=== PATIENT | male | born 1980 | race Caucasian/White ===

== ENCOUNTER 2019-03-25 19:12 | Observation (INO) ==
[2019-03-25 19:38] LABS: Basophils # (auto) 0.02 K/uL (0-0.2); Basophils % (auto) 0.2 %; Eosinophils % (auto) 2.4 %; Hematocrit (blood only) 49.2 % (42-52); Hemoglobin 16.8 g/dL (14.0-18.0); Immature Granulocytes # (auto) 0.02 K/uL (0.00-0.02); Immature Granulocytes % (auto) 0.2 %; Lymphocytes % (auto) 31.2 %; Mean Corpuscular Hemoglobin 31.5 pg (25-34); Mean Corpuscular Hgb Conc 34.1 g/dL (32-36); Mean Corpuscular Volume 92.1 fL (80-100); Mean Platelet Volume 10.6 fL (7.4-10.4); Monocytes # (auto) 0.66 K/uL (0.11-0.59); Monocytes % (auto) 7.9 %; Neutrophils # (auto) 4.83 K/uL (1.4-6.5); Neutrophils % (auto) 58.1 %; Platelet Count 272 K/uL (130-400); RDW Coefficient of Variation 13.2 % (11.5-14.5); RDW Standard Deviation 44.1 fL (36.4-46.3); Red Blood Count 5.34 M/uL (4.7-6.1); White Blood Count 8.33 K/uL (4.8-10.8)
--- NOTE | 2019-03-25 19:39 | XRay Report ---
XR chest 1V portable CLINICAL HISTORY: Hypertension COMPARISON STUDY: No previous studies for comparison. FINDINGS: The bones soft tissues and hemidiaphragms are normal. The cardiomediastinal silhouette is n ormal. The lungs are clear. The pulmonary vasculature is normal. IMPRESSION: Negative chest. ACT 112: Negative or not required by law. The above report was generated using voice recognition software. It may contain grammatical, syntax or spelling errors. Electronically signed by: Nakul Oconnell M.D. 03/25/2019 7:38 PM
[2019-03-25 20:03] LABS: Alanine Aminotransferase 119 U/L (12-78); Albumin Level 3.9 gm/dl (3.4-5.0); Blood Urea Nitrogen 14 mg/dl (7-18); Calcium 9.3 mg/dl (8.5-10.1); Carbon Dioxide 29 mmol/L (21-32); Chloride 108 mmol/L (98-107); Creatinine Clr Calc Pharmacy 94.4 ml/min; Est GFR (African American) 79.3; Est GFR (Non-African American) 68.4; Glucose 133 mg/dl (70-99); Sodium 140 mmol/L (136-145)
[2019-03-25 20:05] LABS: Albumin Globulin Ratio 0.9 (0.9-2); Alkaline Phosphatase 105 U/L (45-117); Bilirubin,Total 0.3 mg/dl (0.2-1); D Dimer < 190 ug/L FEU (0-500); Globulin 4.3 gm/dl (2.5-4.0); Total Protein 8.2 gm/dl (6.4-8.2); Troponin I < 0.015 ng/ml (0-0.045)
[2019-03-25 20:09] LABS: Potassium 3.9 mmol/L (3.5-5.1)
[2019-03-25 20:11] LABS: Aspartate Aminotransferase 51 U/L (15-37)
[2019-03-25 20:13] LABS: Appearance Urine Clear (Clear); Bacteria Urine Automated Negative (Negative); Bilirubin Urine Negative (Negative); Blood Urine Trace (Negative); Cast Urine Automated 0 /lpf (0-5); Color Urine Yellow; Epithelial Cell Urine Auto 0-5 /lpf (0-5); Glucose Urine UA Trace (Negative); Ketones Urine Negative (Negative); Leukocyte Esterase Urine Negative (Negative); Nitrite Urine Negative (Negative); Protein Urine Negative (Negative); RBC Urine Automated 0-4 /hpf (0-4); Specific Gravity Urine 1.021 (1.000-1.030); Urobilinogen Urine Negative (Negative)
--- NOTE | 2019-03-25 22:42 | History & Physical Report ---
Date of Service March 25, 2019 Assessment & Plan (1) Shortness of breath: 39 yo M with PMH HLD presents with concerns of chest palpitations and associated SOB found to have T wave inversions on EKG and neg initial trop admitted for r/o. Palpitations/SOB -admit to telemetry -EKG on arrival shows NSR with inferolateral T wave inversions. Repeat EKG daily ordered -intial trop neg. Will cont trend q6h -nitroglycerin prn for chest pain -Aspirin initiated, cont 5 mg Simvastatin -ECHO ordered -appreciate Cardiology consult -AM Fasting Lipid Panel, A1C -likely component of anxiety HLD -cont 5 mg simvastatin FEN/GI: NPO after midnight for AM labs and for any possible cardiac intervention DVT Prophylaxis: Lovenox 40mg qAM Full Code Dispo: PCU Tele. Obs. History of Present Illness Primary Care Provider: NO PCP 39 yo M with PMH HLD presents to [facility] with concerns of palpitations and associated SOB. Pt describes this as not chest pain or pressure, rather a 'weird feeling in the sternum that feels like a heartbeat.' No previous such occurrence like this before. This only lasts for 1-2 sec, and as mentioned above is associated with brief SOB that quickly resolves. Nonradiating. No alleviating or exacerbating factors. Pt states it occurs randomly, no pattern noticed (with exertion, at rest, etc), about 5-10x/day. First noticed this on his birthday, this past Monday, and pt attributes most of this to feelings of anxiety of getting older. Pt notes that one of his favourite actors, who is roughly same age and body habitus as himself, recently had heart issues, which worried pt that this may also happen to him. Concerns of not being able to be there for his kids, ages 2 and 8, if something were to happen to him as he gets older. Of note, pt was at [facility] in AM of admission and got BP reading there from automatic cuff, which he says was elevated, but unsure of exact reading, perhaps in 200s, which further gave him anxiety. Otherwise denies any PND, HERNANDEZ, syncope or near syncope, diaphoresis, numbness/weakness, F/N/V/D, cough, swelling, claudication, HERR, abd pain, urinary sxs. Pt with no other acute concerns or complaints. ER Course: PO ASA 324 mg CXR- negative chest EKG- NSR. Inferolateral T wave. No previous EKG's for comparison Labs: Largely unremarkable other than AST 51, ALT 119. Initial Trop negative. Family hx: Grandmother with 'open heart surgery three times.' Otherwise unremarkable Social: Denies Tobacco/illicit drug use. Daily alcohol use, 'sometimes 2 beers, sometimes 6' Surgical hx: Inguinal hernia repair, nasal polyp removal. Otherwise unremarkable. Allergies Allergy/AdvReac Type Severity Reaction Status Date / Time No Known Allergies Allergy Unverified 03/25/19 21:43 Home Medications Home Medications Medication Instructions Recorded Confirmed Type simvastatin 5 mg PO DAILY 03/25/19 03/25/19 History Past Med/Surg History Medical History No significant medical problems Social History Feels Safe at Home: Yes Smoking Status: Never smoker Review of Systems Review of Systems: All systems reviewed & are unremarkable except as noted in HPI & below Physical Exam Constitutional: WD/WN, vitals as above Eyes: PERRL, conjunctivae normal, anicteric sclerae ENMT: external ear and nose normal, oropharynx normal Respiratory: normal respiratory effort, lungs clear to auscultation Cardiovascular: RRR, no murmur, no edema Chest (Breasts): Additional Comments: chest sensation not reproducible on palpation Gastrointestinal (Abdomen): normal bowel sounds, soft, nontender, no hepatosplenomegaly Skin: no rashes, warm and dry Psychiatric: Orientation: alert and oriented x 3 Affect: + anxious affect Results & Data Vital Signs (Past 12 Hours) Vital Signs Temp Pulse Pulse Resp BP BP Pulse Ox 03/25/19 21:08 96 03/25/19 21:06 76 16 133/71 97 03/25/19 19:17 36.7 C 89 20 165/97 H 96 Laboratory Results Laboratory Results - last 24 hr 03/25/19 03/25/19 03/25/19 19:29 19:29 19:29 WBC 8.33 RBC 5.34 Hgb 16.8 Hct 49.2 MCV 92.1 MCH 31.5 MCHC 34.1 RDW Std Deviation 44.1 RDW Coeff of Saumya 13.2 Plt Count 272 MPV 10.6 H Immature Gran % (Auto) 0.2 Neut % (Auto) 58.1 Lymph % (Auto) 31.2 [place] % (Auto) 7.9 Eos % (Auto) 2.4 Baso % (Auto) 0.2 Immature Gran # (Auto) 0.02 Neut # (Auto) 4.83 Lymph # (Auto) 2.60 [place] # (Auto) 0.66 H Eos # (Auto) 0.20 Baso # (Auto) 0.02 D-Dimer < 190 Sodium 140 Potassium 3.9 Chloride 108 H Carbon Dioxide 29 Anion Gap 3.0 BUN 14 Creatinine 1.29 Est Cr Clr Drug Dosing 94.4 Est GFR ( Amer) 79.3 Est GFR (Non-Af Amer) 68.4 BUN/Creatinine Ratio 11.0 Glucose 133 H Calcium 9.3 Total Bilirubin 0.3 AST 51 H ALT 119 H Alkaline Phosphatase 105 Troponin I < 0.015 Total Protein 8.2 Albumin 3.9 Globulin 4.3 H Albumin/Globulin Ratio 0.9 Urine Color Urine Appearance Urine pH Ur Specific [place] Urine Protein Urine Glucose (UA) Urine Ketones Urine Blood Urine Nitrite Urine Bilirubin Urine Urobilinogen Ur Leukocyte Esterase Urine WBC (Auto) Urine RBC (Auto) U Hyaline Cast (Auto) U Epithel Cells (Auto) Urine Bacteria (Auto) 03/25/19 19:30 WBC RBC Hgb Hct MCV MCH MCHC RDW Std Deviation RDW Coeff of Saumya Plt Count MPV Immature Gran % (Auto) Neut % (Auto) Lymph % (Auto) [place] % (Auto) Eos % (Auto) Baso % (Auto) Immature Gran # (Auto) Neut # (Auto) Lymph # (Auto) [place] # (Auto) Eos # (Auto) Baso # (Auto) D-Dimer Sodium Potassium Chloride Carbon Dioxide Anion Gap BUN Creatinine Est Cr Clr Drug Dosing Est GFR ( Amer) Est GFR (Non-Af Amer) BUN/Creatinine Ratio Glucose Calcium Total Bilirubin AST ALT Alkaline Phosphatase Troponin I Total Protein Albumin Globulin Albumin/Globulin Ratio Urine Color Yellow Urine Appearance Clear Urine pH 7.0 Ur Specific [place] 1.021 Urine Protein Negative Urine Glucose (UA) Trace H Urine Ketones Negative Urine Blood Trace H Urine Nitrite Negative Urine Bilirubin Negative Urine Urobilinogen Negative Ur Leukocyte Esterase Negative Urine WBC (Auto) 1-5 Urine RBC (Auto) 0-4 U Hyaline Cast (Auto) 0 U Epithel Cells (Auto) 0-5 Urine Bacteria (Auto) Negative Medications Administered Current Inpatient Medications Aspirin (Aspirin) 324 mg PO NOW STA Stop: 03/25/19 23:00 Code Status & VTE Plan Code Status FULL Supervising Physician Co-Signing Physician Notes Patient was seen and examined by me personally. I reviewed the chart, the orders and discussed the case in detail with Dr. Bill Aden DO . I read this H&P and agree with its contents to entirety. Resident Activity Tracking Resident Involvement: Resident Care Provided Care Provided: Adult Hospital Medicine
--- NOTE | 2019-03-25 22:58 | Emergency Department Note ---
Entered by Viola Rdz acting as a scribe for Timur Bowie MD ED Provider Note CHIEF COMPLAINT: Shortness of breath HISTORY OF PRESENT ILLNESS: The patient is a 39 year old male who presents to the Emergency Room with comp laints of shortness of breath which started 4 days ago. The patient reports that he has been experiencing right sided chest pain which radiates to his right shoulder. He notes that he has been short of breath. The patient notes that he went to a clinic today where they referred him to the ED because of high blood pressure. The patient states that the pain is intermittent. He notes that he has been anxious about getting older recently. He mentions that he has been eating and drinking normally. Pt denies LOC, headache, fevers, chills, diaphoresis, visual changes, neck pain, nausea, vomiting, abdominal pain, back pain, melena, hematochezia, urinary symptoms, numbness, weakness, lymphadenopathy, rash, or other complaints. REVIEW OF SYSTEMS: See HPI for pertinent positives and negatives. A total of ten systems were reviewed and were otherwise negative. PMHx/PSHx: No significant past medical history. SOCIAL HISTORY: Patient admits to alcohol use. PHYSICAL EXAM: GENERAL: Awake, alert, well-appearing, in no distress HENT: Normocephalic, atraumatic. Oropharynx unremarkable. EYES: PERRL. Normal conjunctiva. Sclera non-icteric. NECK: Inspection normal. Non-tender. Supple. No nuchal rigidity. FROM. No masses. RESPIRATORY: Clear to auscultation. No wheezes. No rales. Normal respiratory effort. CARDIAC: Normal rate. Normal rhythm. No murmurs. No rubs. Extremities warm and w ell perfused. Pulses equal. No JVD. GI: Soft, non-distended. No tenderness to palpation. No rebound or guarding. No masses. RECTAL: Deferred. MUSCULOSKELETAL: Atraumatic. Chest examination reveals no tenderness. The back is symmetrical on inspection without obvious abnormality. There is no CVA tenderness to palpation. No joint edema. LOWER EXTREMITIES: Calves are equal size bilaterally and non-tender. No edema. No discoloration. NEURO: Normal sensorium. No sensory or motor deficits noted. SKIN: No rash or jaundice noted. EMERGENCY DEPARTMENT COURSE: 193: Past medical records reviewed. The patient was evaluated in room C4, and a complete history and physical examination were performed. 2114: I reevaluated the patient and discussed his results, he is willing to stay. 2119: I discussed the patient's case with Dr. Mora- [facility] Hospitalist, he will accept the patient for further evaluation. MEDICAL DECISION MAKING: Prior records/ancillary studies reviewed. Triage Nursing notes reviewed and agree them. Additional history obtained from the family. The patient's history was concerning for shortness of breath. Differential diagnosis: Etiologies such as pneumonia, COPD, reactive airway disease, CHF, cardiac ischemia, pulmonary embolism, pneumothorax, musculoskeletal, infections, gastrointestinal, as well as others were entertained. Physical examination: As above. Hypertension noted ER treatment provided: Monitoring Oral aspirin Diagnostic interpretation by me: The electrocardiogram was concerning for inferolateral T wave inversions. No pr ior for comparison. The labs revealed an unremarkable CBC and chemistry panel. Troponin and d-dimer negative. Imaging studies: Chest x-ray negative for acute process. The patient noted shortness of breath. He also has had shoulder discomfort. He has inferolateral T wave inversions. No prior cardiac history. He has slight elevation of LFTs. He does admit to alcohol consumption on a regular basis and has been trying to cut back. I discussed further testing and management in the hospital given the ECG changes and patient and significant other were in agreement. Consultation: A consultation was placed with the hospitalist. The case was discussed and diagnostics were reviewed. The patient was evaluated in the ER for further treatment. IMPRESSION: Shortness of breath, abnormal ECG, and elevated LFTs. PLAN: Admitted The scribe's documentation has been prepared under my direction and personally reviewed by me in its entirety. I confirm that the note above accurately reflects all work, treatment, procedures, and medical decision making performed by me. Impression & Plan Shortness of breath, Abnormal ECG, Elevated LFTs Past Med/Surg History Medical History No significant medical problems Social History Feels Safe at Home: Yes Smoking Status: Never smoker Results & Data Vital Signs Vital Signs - 24 hr 03/25/19 19:17 03/25/19 19:34 03/25/19 21:06 Temperature 36.7 C Temperature Source Oral Pulse Rate 89 Pulse Rate [Right] 76 Pulse Rhythm [Right] Regular Pulse Strength [Right] Normal Respiratory Rate 20 16 Respiratory Effort / Characteristics Non-Labored Spontaneous Non-Labored Non-Labored Spontaneous Respiratory Depth Normal Normal Normal Respiratory Pattern Regular Blood Pressure 165/97 H Blood Pressure [Right Arm] 133/71 Blood Pressure Mean 119 Blood Pressure Mean [Right Arm] 91 Blood Pressure Position [Right Arm] Lying Pulse Oximetry 96 97 Oxygen Delivery Method Room Air Room Air Room Air Sepsis Recent Fever Within 48 Hours No Sepsis New/Unexplained Change in Mental Status No Sepsis Action Taken by Nursing No Action Required 03/25/19 21:08 Temperature Temperature Source Pulse Rate Pulse Rate [Right] Pulse Rhythm [Right] Pulse Strength [Right] Respiratory Rate Respiratory Effort / Characteristics Respiratory Depth Respiratory Pattern Blood Pressure Blood Pressure [Right Arm] Blood Pressure Mean Blood Pressure Mean [Right Arm] Blood Pressure Position [Right Arm] Pulse Oximetry 96 Oxygen Delivery Method Room Air Sepsis Recent Fever Within 48 Hours Sepsis New/Unexplained Change in Mental Status Sepsis Action Taken by [facility] Medications Current Medication List: was personally reviewed by me Laboratory Data Attestation: I reviewed the patient's lab results. Result diagrams: 03/25/19 19:29 03/25/19 19:29 Lab Results 03/25/19 03/25/19 03/25/19 Range/Units 19:29 19:29 19:29 WBC 8.33 (4.8-10.8) K/uL RBC 5.34 (4.7-6.1) M/uL Hgb 16.8 (14.0-18.0) g/dL Hct 49.2 (42-52) % MCV 92.1 (80-100) fL MCH 31.5 (25-34) pg MCHC 34.1 (32-36) g/dL RDW Std Deviation 44.1 (36.4-46.3) fL RDW Coeff of Saumya 13.2 (11.5-14.5) % Plt Count 272 (130-400) K/uL MPV 10.6 H (7.4-10.4) fL Immature Gran % (Auto) 0.2 % Neut % (Auto) 58.1 % Lymph % (Auto) 31.2 % [place] % (Auto) 7.9 % Eos % (Auto) 2.4 % Baso % (Auto) 0.2 % Immature Gran # (Auto) 0.02 (0.00-0.02) K/uL Neut # (Auto) 4.83 (1.4-6.5) K/uL Lymph # (Auto) 2.60 (1.2-3.4) K/uL [place] # (Auto) 0.66 H (0.11-0.59) K/uL Eos # (Auto) 0.20 (0-0.5) K/uL Baso # (Auto) 0.02 (0-0.2) K/uL D-Dimer < 190 (0-500) ug/L FEU Sodium 140 (136-145) mmol/L Potassium 3.9 (3.5-5.1) mmol/L Chloride 108 H (98-107) mmol/L Carbon Dioxide 29 (21-32) mmol/L Anion Gap 3.0 (3-11) BUN 14 (7-18) mg/dl Creatinine 1.29 (0.6-1.4) mg/dl Est Cr Clr Drug Dosing 94.4 ml/min Est GFR ( Amer) 79.3 Est GFR (Non-Af Amer) 68.4 BUN/Creatinine Ratio 11.0 (10-20) Glucose 133 H (70-99) mg/dl Calcium 9.3 (8.5-10.1) mg/dl Total Bilirubin 0.3 (0.2-1) mg/dl AST 51 H (15-37) U/L ALT 119 H (12-78) U/L Alkaline Phosphatase 105 (45-117) U/L Troponin I < 0.015 (0-0.045) ng/ml Total Protein 8.2 (6.4-8.2) gm/dl Albumin 3.9 (3.4-5.0) gm/dl Globulin 4.3 H (2.5-4.0) gm/dl Albumin/Globulin Ratio 0.9 (0.9-2) Urine Color Urine Appearance (Clear) Urine pH (4.5-7.5) Ur Specific [place] (1.000-1.030) Urine Protein (Negative) Urine Glucose (UA) (Negative) Urine Ketones (Negative) Urine Blood (Negative) Urine Nitrite (Negative) Urine Bilirubin (Negative) Urine Urobilinogen (Negative) Ur Leukocyte Esterase (Negative) Urine WBC (Auto) (0-5) /hpf Urine RBC (Auto) (0-4) /hpf U Hyaline Cast (Auto) (0-5) /lpf U Epithel Cells (Auto) (0-5) /lpf Urine Bacteria (Auto) (Negative) 03/25/19 Range/Units 19:30 WBC (4.8-10.8) K/uL RBC (4.7-6.1) M/uL Hgb (14.0-18.0) g/dL Hct (42-52) % MCV (80-100) fL MCH (25-34) pg MCHC (32-36) g/dL RDW Std Deviation (36.4-46.3) fL RDW Coeff of Saumya (11.5-14.5) % Plt Count (130-400) K/uL MPV (7.4-10.4) fL Immature Gran % (Auto) % Neut % (Auto) % Lymph % (Auto) % [place] % (Auto) % Eos % (Auto) % Baso % (Auto) % Immature Gran # (Auto) (0.00-0.02) K/uL Neut # (Auto) (1.4-6.5) K/uL Lymph # (Auto) (1.2-3.4) K/uL [place] # (Auto) (0.11-0.59) K/uL Eos # (Auto) (0-0.5) K/uL Baso # (Auto) (0-0.2) K/uL D-Dimer (0-500) ug/L FEU Sodium (136-145) mmol/L Potassium (3.5-5.1) mmol/L Chloride (98-107) mmol/L Carbon Dioxide (21-32) mmol/L Anion Gap (3-11) BUN (7-18) mg/dl Creatinine (0.6-1.4) mg/dl Est Cr Clr Drug Dosing ml/min Est GFR ( Amer) Est GFR (Non-Af Amer) BUN/Creatinine Ratio (10-20) Glucose (70-99) mg/dl Calcium (8.5-10.1) mg/dl Total Bilirubin (0.2-1) mg/dl AST (15-37) U/L ALT (12-78) U/L Alkaline Phosphatase (45-117) U/L Troponin I (0-0.045) ng/ml Total Protein (6.4-8.2) gm/dl Albumin (3.4-5.0) gm/dl Globulin (2.5-4.0) gm/dl Albumin/Globulin Ratio (0.9-2) Urine Color Yellow Urine Appearance Clear (Clear) Urine pH 7.0 (4.5-7.5) Ur Specific [place] 1.021 (1.000-1.030) Urine Protein Negative (Negative) Urine Glucose (UA) Trace H (Negative) Urine Ketones Negative (Negative) Urine Blood Trace H (Negative) Urine Nitrite Negative (Negative) Urine Bilirubin Negative (Negative) Urine Urobilinogen Negative (Negative) Ur Leukocyte Esterase Negative (Negative) Urine WBC (Auto) 1-5 (0-5) /hpf Urine RBC (Auto) 0-4 (0-4) /hpf U Hyaline Cast (Auto) 0 (0-5) /lpf U Epithel Cells (Auto) 0-5 (0-5) /lpf Urine Bacteria (Auto) Negative (Negative) Imaging Data Radiologist's Impression: Radiology results as stated below per my review and the radiologist's interpretation: XR chest 1V portable CLINICAL HISTORY: Hypertension COMPARISON STUDY: No previous studies for comparison. FINDINGS: The bones soft tissues and hemidiaphragms are normal. The cardiomediastinal silhouette is normal. The lungs are clear. The pulmonary vasculature is normal. IMPRESSION: Negative chest. ACT 112: Negative or not required by law. The above report was generated using voice recognition software. It may contain grammatical, syntax or spelling errors. Electronically signed by: Nakul Oconnell M.D. 03/25/2019 7:38 PM ECG Data Attestation: I personally reviewed and interpreted this ECG as follows: Indication: + SOB/dyspnea Rate (beats per minute): 83 Rhythm: normal sinus ECG Intervals/blocks: + Normal QRS ECG [place]: + Normal ECG ST segments: + T-wave inversions (Inferior); no ST elevation ECG Findings: no PVCs Blood Pressure Blood Pressure Findings: Elevated blood pressure Blood Pressure Disposition: further management by hospitalist Discharge Plan Visit Data Chief Complaint: Shortness of Breath/Dyspnea Stated Complaint: HIGH BLOOD PRESSURE, HARD TO BREATHE ED Provider: Timur Bowie Discharge Problem: Shortness of breath, Abnormal ECG, Elevated LFTs Patient Disposition: Being Evaluated by Hospitalist Forms Stand Alone Forms: My [facility] Prescriptions Prescriptions: No Action simvastatin 5 mg Tablet 5 mg PO DAILY RF: 0 Referrals Referrals: PCP,NO [Primary Care Provider] - The scribe's documentation has been prepared under my direction and personally reviewed by me in its entirety. I confirm that the note above accurately reflects all work, treatment, procedures, and medical decision making performed by me.
[2019-03-25] MEDS ORDERED: ASPIRIN CHEW 324 MG PO STA (22:59)
--- NOTE | 2019-03-25 23:37 | Billing Data ---
Date of Service March 25, 2019 Coding Level of Care Code 44773 OBS Care - Level 3
[2019-03-26] MEDS ORDERED: ACETAMINOPHEN 325 MG TAB PO PRN (00:25)
[2019-03-26] MEDS ORDERED: ONDANSETRON INJ 2 MG/ML 2 ML VIAL IV PRN (00:25)
[2019-03-26] MEDS ORDERED: ALUMINUM/MAGNESIUM SUSP 30 ML UDC PO PRN (00:25)
[2019-03-26] MEDS ORDERED: NITROGLYCERIN SL 0.4 MG/TAB TAB SL PRN (00:25)
[2019-03-26 07:19] LABS: Basophils # (auto) 0.03 K/uL (0-0.2); Basophils % (auto) 0.4 %; Eosinophils # (auto) 0.28 K/uL (0-0.5); Eosinophils % (auto) 3.8 %; Hematocrit (blood only) 46.6 % (42-52); Hemoglobin 16.2 g/dL (14.0-18.0); Immature Granulocytes # (auto) 0.03 K/uL (0.00-0.02); Immature Granulocytes % (auto) 0.4 %; Lymphocytes # (auto) 2.28 K/uL (1.2-3.4); Lymphocytes % (auto) 31.2 %; Mean Corpuscular Hemoglobin 32.1 pg (25-34); Mean Corpuscular Hgb Conc 34.8 g/dL (32-36); Mean Corpuscular Volume 92.5 fL (80-100); Mean Platelet Volume 10.4 fL (7.4-10.4); Monocytes # (auto) 0.69 K/uL (0.11-0.59); Monocytes % (auto) 9.5 %; Neutrophils # (auto) 3.99 K/uL (1.4-6.5); Neutrophils % (auto) 54.7 %; Platelet Count 263 K/uL (130-400); RDW Coefficient of Variation 13.4 % (11.5-14.5); RDW Standard Deviation 45.2 fL (36.4-46.3); Red Blood Count 5.04 M/uL (4.7-6.1)
[2019-03-26 07:44] LABS: Estimated Average Glucose 111 mg/dl; Hemoglobin A1C 5.5 % (4.5-5.6)
[2019-03-26 07:51] LABS: BUN Creatinine Ratio 12.4 (10-20); Calcium 9.3 mg/dl (8.5-10.1); Creatinine Clr Calc Pharmacy 111.4 ml/min; Est GFR (African American) 98.3; Est GFR (Non-African American) 84.8
[2019-03-26] MEDS ORDERED: ENOXAPARIN INJ 40 MG/0.4 ML SYR SQ SCH (09:00)
[2019-03-26] MEDS ORDERED: SIMVASTATIN 5 MG TAB PO SCH (09:00)
--- NOTE | 2019-03-26 10:13 | Discharge Summary ---
Date of Service March 26, 2019 Admission HPI Per Admitting Provider 39 yo M with PMH HLD presents to [facility] with concerns of palpitations and associated SOB. Pt describes this as not chest pain or pressure, rather a 'weird feeling in the sternum that feels like a heartbeat.' No previous such occurrence like this before. This only lasts for 1-2 sec, and as mentioned above is associated with brief SOB that quickly resolves. Nonradiating. No alleviating or exacerbating factors. Pt states it occurs randomly, no pattern noticed (with exertion, at rest, etc), about 5-10x/day. First noticed this on his birthday, this past [birth year], and pt attributes most of this to feelings of anxiety of getting older. Pt notes that one of his favourite actors, who is roughly same age and body habitus as himself, recently had heart issues, which worried pt that this may also happen to him. Concerns of not being able to be there for his kids, ages 2 and 8, if something were to happen to him as he gets older. Of note, pt was at [employer] in AM of admission and got BP reading there from automatic cuff, which he says was elevated, but unsure of exact reading, perhaps in 200s, which further gave him anxiety. Otherwise denies any PND, HERNANDEZ, syncope or near syncope, diaphoresis, numbness/weakness, F/N/V/D, cough, swelling, claudication, HERR, abd pain, urinary sxs. Pt with no other acute concerns or complaints. ER Course: PO ASA 324 mg CXR- negative chest EKG- NSR. Inferolateral T wave. No previous EKG's for comparison Labs: Largely unremarkable other than AST 51, ALT 119. Initial Trop negative. Family hx: Grandmother with 'open heart surgery three times.' Otherwise unremarkable Social: Denies Tobacco/illicit drug use. Daily alcohol use, 'sometimes 2 beers, sometimes 6' Surgical hx: Inguinal hernia repair, nasal polyp removal. Otherwise unremarkable. Admission Exam Per Admitting Provider Constitutional: WD/WN, vitals as above Eyes: PERRL, conjunctivae normal, anicteric sclerae ENMT: external ear and nose normal, oropharynx normal Respiratory: normal respiratory effort, lungs clear to auscultation Cardiovascular: RRR, no murmur, no edema Chest (Breasts): Additional Comments: chest sensation not reproducible on palpation Gastrointestinal (Abdomen): normal bowel sounds, soft, nontender, no hepatosplenomegaly Skin: no rashes, warm and dry Psychiatric: Orientation: alert and oriented x 3 Affect: + anxious affect Principal Diagnosis Palpitations Discharge Exam Constitutional WD/WN, vitals as above cooperative Eyes PERRL, conjunctivae normal, anicteric sclerae ENMT external ear and nose normal, oropharynx normal Neck normal visual inspection and trachea midline Respiratory normal respiratory effort, lungs clear to auscultation Cardiovascular RRR, no murmur, no edema Heart Sounds: normal S1 and normal S2 Gastrointestinal (Abdomen) normal bowel sounds, soft, nontender, no hepatosplenomegaly Skin no rashes, warm and dry Many tattoos on neck and bilateral upper extremities Psychiatric A+Ox3, euthymic affect Discharge Data Allergies Allergy/AdvReac Type Severity Reaction Status Date / Time No Known Allergies Allergy Unverified 03/25/19 21:43 Hospital Course (1) Shortness of breath: Mr. Alvarado is a 39 yo M with PMH HLD on low dose simvastatin who was hospitalized at [facility] for evaluation of chest palpitations and associated SOB. Mr. Alvarado denied experiencing any discrete chest pain or pressure, and he endorses feeling anxious prior to symptom onset. On arrival to the ED his CXR was normal. His troponin was undetectable x 3. His EKG showed T wave inversions in the lateral leads on admission. A stress echocardiogram was performed and was normal. Symptoms were ultimately felt to be secondary to situational anxiety, as chest pain work up was negative. Symptoms totally resolved prior to discharge. His HbA1c was normal at 5.5 and lipid panel showed total cholesterol of 203, LDL of 126, HDL of 44, with a ratio of 5. Discussed to start counselling for lifestyle modifications (diet and exercise). Consider increasing statin dose for tighter lipid control. Monitor BP. Mr. Alvarado also had elevated liver enzymes on arrival. His AST was 51 and ALT was 119. Although this pattern is not consistent with alcohol related liver disease, he does drink 3-4 beers per day on -, and 5-6 on Mon and Monday, yielding a weekly total of ~ 25 drinks per week, far exceeding the advised daily and weekly intake upper limits. Likely represents fatty liver disease. Discussed getting into counselling to help reduce ETOH consumption. Will need to have follow up liver enzymes. Consider RUQ ultrasound to rule out gallbladder pathology (CBD dilation). Total Time Total Time Spent Total Time Spent (In Minutes): see attending attestation Discharge Plan Discharge Items Patient Disposition: Home - Self-Care Reason For Visit: SOB Discharge Diagnosis: Palpitations Condition on Discharge: Good Activity: Resume your previous activity Non-emergency contact: Primary Care Provider Call non-emergency contact if: your symptoms worsen Follow-up/Referrals: PCP,NO [Primary Care Provider] - Diet: Regular Addtl Attending Provider Instructions: You were hospitalized at [facility] on March 252019 for evaluation of palpitations (irregular sensation of heart beat) and associated shortness of breath. Your chest X ray was normal. All 3 of your troponin levels, a marker of cardiac strain in your blood, were negative. When you arrived to the emergency department, your EKG had a nonspecific abnormality that normalized on repeat EKGs during your hospital stay. An echocardiogram, or ultrasound of your heart, was obtained and read was normal. You also had a stress test while in the hospital and it was normal. Collectively, there was no evidence of a heart attack or reduced blood flow to heart muscle, known as "ischemia." We checked your cholesterol, which came back high. You already take a small dose of a cholesterol lowering agent - please continue to do so. You may want to discuss increase the dose and/or dietary change/ exercise with your primary care doctor. Please follow-up with your primary care doctor within 1 week to discuss. Pending Studies at Discharge: No Stand-Alone Forms: [facility], Smoking Cessation Medications and DC Order Prescriptions: Continued simvastatin 5 mg Tablet 5 mg PO DAILY RF: 0 Discharge Orders: Discharge Order (Routine); Ordered 03/26/19 Ordered By: Carol Saha Admission Data Admit Date/Time: 03/25/19 23:36 Attending Provider: Sabina Olea Admit Provider: Bill Aden Primary Care Provider: PCP,NO Other Providers: Loc Mora Other Interventions: Discharge Summary Assessment (RN) Last Done: 03/26/19 13:21 DC Date/Time DO NOT enter until pt leaves facility: 03/26/19 14:11 Supervising Physician Co-Signing Physician Notes Resident Physician Supervision Note: I independently interviewed and examined the patient and verified the duarte history and physical, reviewed labs and image studies, discussed the case with the resident Dr. Saha and agree with the findings and care plan. Resident Activity Tracking Resident Involvement: Resident Care Provided Care Provided: Adult [facility]
--- NOTE | 2019-03-26 10:34 | Electrocardiogram Report ---
Test Reason : Blood Pressure : / mmHG Vent. Rate : 083 BPM Atrial Rate : 083 BPM P-R Int : 134 ms QRS Dur : 094 ms QT Int : 358 ms P-R-T Axes : 045 062 -17 degrees QTc Int : 420 ms Normal sinus rhythm T wave abnormality, consider inferior ischemia Abnormal ECG No previous ECGs available Confirmed by John Head ([id number]) on 03/26/2019 10:34:21 AM Referred By: REFERRED SELF Confirmed By:John Head
--- NOTE | 2019-03-26 10:39 | Electrocardiogram Report ---
Test Reason : Blood Pressure : / mmHG Vent. Rate : 067 BPM Atrial Rate : 067 BPM P-R Int : 162 ms QRS Dur : 090 ms QT Int : 388 ms P-R-T Axes : 033 071 060 degrees QTc Int : 409 ms Normal sinus rhythm Nonspecific ST and T wave abnormality Abnormal ECG When compared with ECG of 25-MAR-2019 19:25, (unconfirmed) Nonspecific T wave abnormality has replaced inverted T waves in Inferior leads Confirmed by John Head ([id number]) on 03/26/2019 10:39:10 AM Referred By: REFERRED SELF Confirmed By:John Head
--- NOTE | 2019-03-26 12:26 | Cardiology Consultation ---
Date of Consultation March 26, 2019 History of Present Illness Reason for Consultation: Atypical chest pain Requesting Physician: Sabina Olea MD Attending Physician: Sabina Olea MD Allergies Allergy/AdvReac Type Severity Reaction Status Date / Time No Known Allergies Allergy Unverified 03/25/19 21:43 Home Medications Home Medications Medication Instructions Recorded Confirmed Type simvastatin 5 mg PO DAILY 03/25/19 03/25/19 History Patient History Medical History No significant medical problems Social History Preferred Language: Moldovan Communication Ability: Effective Tube Handler Required: No Beliefs That Will Affect Care: None Current Living Situation: Spouse Feels Safe at Home: Yes Smoking Status: Former smoker Second Hand Exposure: No ; Hx Alcohol Use: Yes Alcohol type: beer Hx Substance Use: No Results & Data Vital Signs (Past 12 Hours) Vital Signs Temp Pulse Pulse Resp BP Pulse Ox 03/26/19 10:16 62 03/26/19 08:01 98.6 F 66 18 122/63 96 03/26/19 04:00 98.1 F 61 18 118/74 97 03/26/19 01:00 60 133/84 PG Care Time/CCT Total # of Minutes Spent Total Time Spent with Patient: Total time spent is greater than 50% in coordination of care (as documented) at patient's floor/unit and/or counseling patient:
== END 2019-03-26 14:11 | disposition home or self-care (01) ==
LOC: 2S 19:12 → ED 19:12 → SUATTDRO 23:36 → 2S 23:53